=== PATIENT | female | born 1935 | race African-American/Black ===

== ENCOUNTER → 2018-01-21 | Day surgery (SDC) | payer MEDICARE, OTHER ==
[~2018-01-21] MED LIST: ALLOPURINOL 10100 M2 PO; ATORVASTATIN CA40 MG PO; CARDURA4 MG PO; HYDRALAZINE 2525 MG PO; MIRALAX17 GM PO; NEPHRO-VITE TA0.8 MG PO; NIFEDIPINE ER90 M1 PO; TYLENOL325 MG PO
[2018-01-21 11:01] LABS: HEMATOCRIT 34.7 % (37.0-47.0); HEMOGLOBIN 11.3 gm/dL (12.0-15.0); MCH 28.8 pg (26.0-34.0); MCHC 32.7 g/dL (28.0-37.0); MPV 8.2 fl. (7.2-11.1); RBC 3.94 mil/uL (4.20-5.00); RDW-CV 17.4 % (10.5-14.5); WBC 7.6 thou/uL (4.0-11.0)
[2018-01-21 11:09] LABS: CALCIUM 10.2 mg/dL (8.5-10.1); CREATININE 4.4 mg/dL (0.6-1.3); POTASSIUM 4.9 mmol/L (3.5-5.1)
--- NOTE | 2018-01-21 17:51 | EKG ---
[place] [address] ELECTROCARDIOGRAM REPORT Name: MAYDA CALVIN Room: [facility]#: [id number] Admission: 01/21/18 Attend Phys: Marck Lund DO Discharge: Date of : 37 Report #: [id number] THIS REPORT FOR: //name// [facility] Test Date: 2018-01-21 Test Time: 10:42:18 Pat Name: MAYDA CALVIN Department: Room: Gender: F [employer]: : 1935 Requested By: Marck Lund Order Number: [id number] Reading MD: Wilbert Dasilva Measurements Intervals [place] Rate: 88 P: 73 [place]: 143 QRS: 11 QRSD: 85 T: 60 QT: 360 QTc: 436 Interpretive Statements Sinus rhythm Probable left atrial enlargement No previous ECG available for comparison Electronically Signed On 01-21-2018 17:51:41 CDT by Wilbert Dasilva [email or web address] <ELECTRONICALLY SIGNED> By: Wilbert Dasilva MD, [facility] 01/21/18 1751 1042 1042 Wilbert Dasilva MD, FACC /EPI
--- NOTE | 2018-01-26 15:04 | OP ---
[address] [address] OPERATIVE REPORT Name: MAYDA CALVIN Room: [facility]#: [id number] Admission: 01/21/18 Attend Phys: Marck Lund DO Discharge: Date of : 37 Report #: [id number] THIS REPORT FOR: //name// CC: Marck Mejia [facility] DATE OF SERVICE: 01/21/2018 PREOPERATIVE DIAGNOSIS: End-stage renal disease. POSTOPERATIVE DIAGNOSIS: End-stage renal disease. OPERATION: Creation of left brachial-axillary arteriovenous graft. SURGEON: Marck Lund DO [employer] ROLLS: None. ANESTHESIA: LMA. ESTIMATED BLOOD LOSS: 50 mL. FLUIDS: 200 crystalloid. URINE OUTPUT: None. SPECIMENS: None. COMPLICATIONS: None. IMPLANTS: A 4 x 7 tapered Acuseal graft in the left upper arm. FINDINGS: Left brachial artery was 5-6 mm in diameter, soft and suitable for access. The axillary vein with good outflow. She had excellent thrill within the graft. Upon completion on the anastomosis, she had a palpable left radial artery pulse as well. CLINICAL HISTORY: The patient is an 82-year-old woman who is in need of dialysis access. Recommendation was made of the left upper extremity AV graft, that she is right hand dominant and has no vein options available as they are too small. DETAILS OF PROCEDURE: After informed consent was obtained, the patient was taken to the operating room and placed on the OR bed in supine position. She was administered LMA anesthesia by the anesthesia team. Left upper extremity was prepped and draped in usual sterile fashion. [place] [address] OPERATIVE REPORT Name: MAYDA CALVIN Room: [facility]#: [id number] Admission: 01/21/18 Attend Phys: Marck Lund DO Discharge: Date of : 37 Report #: [id number] identifying correct patient and procedure. Next, transverse incision was made on the medial aspect of the left upper arm, just in the antecubital fossa. Dissection was carried down through skin and subcutaneous tissues, both sharply and with electrocautery. The brachial artery was identified, was circumferentially mobilized proximally and distally and controlled with Silastic vessel loops in Ford fashion. I then turned my attention to the axillary area. I made a longitudinal incision on the medial arm. Again, dissection was carried down through skin and subcutaneous tissues, both sharply and with electrocautery. Axillary vein was identified, was circumferentially mobilized and controlled with Silastic vessel loops proximally and distally in Ford fashion. At this point, I administered 5000 units of intravenous heparin. This allowed to circulate for 3 minutes. I then tunneled the graft and subcutaneous plane in standard fashion on the anterior medial aspect of the arm. I then tailored the graft lengths and then once the heparin was circulated, I occluded the brachial artery, made an arteriotomy, extended with Ford scissors. I performed an end-to-side anastomosis with the graft and the brachial artery with running 6-0 Prolene suture. I then flushed the artery of the graft and then restored flow to the hand and then flushed the graft with heparinized saline and occluded the graft and the brachial incision. I then trimmed the graft to length, so it lies nicely with the anatomy of the vein. I then occluded the axillary vein, made a venotomy and extended with Ford scissors and then performed an end-to-side anastomosis with running 5-0 Prolene suture. Prior to completion of the suture line, the vein was allowed to fore and backbleed. I then flushed the graft and then flushed anastomosis with heparinized saline. I then completed the suture line, restored flow through the graft and into the axillary vein. There was a palpable thrill within the graft and palpable left radial artery. At this point, I then partially reversed the heparin with 40 mg of protamine. I irrigated the wounds with antibiotic solution and closed the wounds in layers with 3-0 Vicryl and 4-0 Monocryl on the skin and Dermabond was applied. All sponge, sharp and instrument counts reported as correct x 2. She tolerated the procedure well and was transferred to recovery in stable condition. <ELECTRONICALLY SIGNED> By: Marck Lund DO 01/26/18 1504 1247 1411Aadal Lund DO /nt
== END | disposition home or self-care (01) ==
LOC: M.SUR 10:19
PROVIDERS: Surgery
DX: N18.6 End stage renal disease (principal)

== ENCOUNTER → 2020-02-03 | Outpatient (CLI) | payer MEDICARE, OTHER ==
[2020-02-03 14:45] VITALS: BP 151/77
--- NOTE | 2020-02-07 09:20 | OP ---
[address] [address] OPERATIVE REPORT Name: CALVINMAYDA Lucy Room: [facility]#: [id number] Admission: 02/03/20 Attend Phys: Dennis Hanna MD Discharge: Date of : 36 Report #: [id number] THIS REPORT FOR: //name// cc: Jt Chanlder Bruce R. DO ~ THIS REPORT FOR: //name// CC: Jt Hanna DATE OF SERVICE: 02/03/2020 PREOPERATIVE DIAGNOSES: 1. End-stage renal disease. 2. Thrombosed AV graft, left arm. POSTOPERATIVE DIAGNOSES: 1. End-stage renal disease. 2. Thrombosed AV graft, left arm. PROCEDURE: 1. Fistulogram, left upper extremity access. 2. Thrombolysis left arm AV graft. 3. Thrombectomy, left arm AV graft. 4. Angioplasty and stenting using an endograft of the venous outflow chronic thrombus. 5. Central venogram. FINDINGS On imagin. AV graft is thrombosed. After thrombolysis the arterial limb of the graft is widely patent with continued thrombus within the venous outflow. 2. After clearance of majority of the thrombus, there are some chronic thrombus on the end of an old venous outflow stent. Despite multiple attempts at the maceration and thrombectomy, this clot remained present. 3. After stenting There was no residual stenosis or free floating clot within the venous outflow stent. 4. No central venous stenosis identified on venous outflow. 5. Arterial anastomosis widely patent. 6. After intervention, there is widely patent flow through the AV graft from arterial anastomosis to venous anastomosis. There was also widely patent flow through the venous outflow. SURGEON: Dennis Hanna MD CRUSHER MACHINE OPERATOR: [place] [address] OPERATIVE REPORT Name: MAYDA CALVIN Room: [facility]#: [id number] Admission: 02/03/20 Attend Phys: Dennis Hanna MD Discharge: Date of : 36 Report #: [id number] ANESTHESIA: Local sedation. COMPLICATIONS: None. ESTIMATED BLOOD LOSS: Minimal. INDICATIONS FOR PROCEDURE: The patient is a very pleasant 84-year-old -Monegas[place] female well known to us. My partner, Dr. Lund, placed a left arm AV graft on her some time ago. She has experienced some issues with clotting in the past requiring multiple fistulograms with intervention. She dialyzed on Thursday, but came in with a thrombosed graft today. We have taken for emergent thrombectomy, so she can get dialysis as we can. Informed consent was obtained from the patient with risks including but not limited to bleeding, infection, need for further surgery, pain, , heart attack, stroke, steal syndrome. The patient understood these risks and was agreeable to proceed. DESCRIPTION OF PROCEDURE: The patient was in the preoperative holding area. I prepped and draped the left upper extremity. I accessed the AV graft with a micropuncture kit. I then diffusely instilled 2 mg TPA throughout the graft as I withdrew the catheter. This was a thrombolysis. We allowed this to marinate for approximately 30 minutes prior to the procedure. The patient was then taken to the angio suite, placed in supine position. Left upper extremity was prepped and draped in usual sterile fashion. Timeout was performed. Sedation was initiated. I use 5 mL of 1% lidocaine throughout the procedure for local anesthetic. I accessed AV graft in antegrade fashion near the arterial anastomosis. I used Seldinger technique to exchange out for a 7-Belarusian sheath. I performed a careful fistulogram taking care not to pressurized arterial limb and causing embolization. Please see findings above. Using a wire, I across the outflow thrombus. I performed thrombectomy with outflow thrombus using an 8 and 10 mm balloon macerating and thrombectomizing the outflow. I had excellent result. There was some chronic residual thrombus on the distal end of the previously placed outflow stent. I made multiple attempts to free this thrombus and macerated that was unsuccessful. Central venogram showed no significant stenosis. To address the chronic thrombus on the old stent, I covered this with a second stent graft measuring 8 x 60. This extended from the distal venous end of the graft into the previously placed stent. Stent deployed in excellent position. I post-dilated 8 mm balloon. Completion imaging showed excellent result with resolution of the stenosis/chronic thrombus. I think this may have been the nidus for the thrombosis. I removed my sheath and wire, I placed a Monocryl stitch in the skin. There was no bleeding or hematoma. The patient tolerated the procedure well and was taken alert and awake to recovery room in good condition. The patient has been scheduled for elective follow up fistulogram next week, but thrombosed this week. Given that she thrombosed prior to her planned follow up [facility] [address] [place] [address] OPERATIVE REPORT Name: MAYDA CALVIN Room: [facility]#: [id number] Admission: 02/03/20 Attend Phys: Dennis Hanna MD Discharge: Date of : 37 Report #: [id number] fistulogram, I would recommend that we repeat one in 2 months rather than 3. I will get this scheduled. <ELECTRONICALLY SIGNED> By: Marck Lund DO 02/07/20 0920 1559 1656Dennis Hanna MD /nt
== END | disposition home or self-care (01) ==
LOC: M.INT 13:57
DX: N18.6 End stage renal disease (principal); T82.868A Thrombosis due to vascular prosthetic devices, implants and grafts, initial encounter; Z99.2 Dependence on renal dialysis; Y83.8 Other surgical procedures as the cause of abnormal reaction of the patient, or of later complication, without mention of misadventure at the time of the procedure

== ENCOUNTER 2020-08-07 00:47 | Inpatient (IN) | payer MEDICARE, OTHER ==
[~2020-08-07] VITALS: Ht 152.4 cm; Wt 64.4 kg
[2020-08-07] VITALS (8 sets, daily range): BP systolic 114–163; BP diastolic 53–79
[2020-08-07 02:01] LABS: ABSOLUTE LYMPHOCYTES 0.4 thou/uL (0.8-5.3); ABSOLUTE MONOCYTES 1.1 thou/uL (0.0-1.2); ABSOLUTE NEUTROPHILS 3.9 thou/uL (1.6-8.1); BASOPHILS 0.8 %; EOSINOPHILS 0.1 %; HEMATOCRIT 29.7 % (37.0-47.0); MCH 30.2 pg (26.0-34.0); MCHC 33.8 g/dL (28.0-37.0); MCV 89.4 fL (80.0-100.0); MONOCYTES 19.7 %; MPV 8.7 fl. (7.2-11.1); NUCLEATED RBCS 0 /100WBC; PLATELET COUNT* 145 thou/uL (150-400); POLYS 72.4 %; RBC 3.32 mil/uL (4.20-5.00); RDW-CV 20.5 % (10.5-14.5); WBC 5.4 thou/uL (4.0-11.0)
[2020-08-07 02:10] LABS: CALCIUM 8.4 mg/dL (8.5-10.1); CREATININE 4.7 mg/dL (0.6-1.3); POTASSIUM 4.2 mmol/L (3.5-5.1)
[2020-08-07 02:15] LABS: ALBUMIN 3.6 g/dL (3.4-5.0); TOTAL BILIRUBIN 0.4 mg/dL (<0.1-1.0); TOTAL PROTEIN 7.4 g/dL (6.4-8.2)
[2020-08-07 05:07] LABS: ANISOCYTOSIS 2+
[2020-08-07 05:09] LABS: OVALOCYTES 1+; PLATELET ESTIMATE ADEQUATE; SCHISTOCYTES Occasional
[2020-08-07 09:38] LABS: CHOLESTEROL 214 mg/dL (<200); HDL CHOLESTEROL 80 mg/dL (>40); LDL CHOLESTEROL 116 mg/dL (<100); TC:HDL 2.7 Ratio (Not establshd); TRIGLYCERIDE 94 mg/dL (<150); VLDL 19 mg/dL (<40)
--- NOTE | 2020-08-07 09:38 | EKG ---
[place] [address] ELECTROCARDIOGRAM REPORT Name: MAYDA CALVIN Room: [place] [address] ADM IN [facility]#: [id number] Admission: 08/07/20 Attend Phys: Theron Anne Discharge: Date of : 37 Date of Service: 08/07/20 0055 Report #: [id number] THIS REPORT FOR: //name// [facility] ED Test Date: 2020-08-07 Test Time: 00:55:39 Pat Name: MAYDA CALVIN Department: Room: [facility] Gender: F [facility] [place] : 1935 Requested By: Joe Corrales Order Number: [id number] MD: Shamar Pastor Measurements Intervals [place] Rate: 90 P: 55 MD: 153 QRS: -5 QRSD: 96 T: 29 QT: 337 QTc: 413 Interpretive Statements Sinus rhythm Atrial premature complex Probable left atrial enlargement Compared to ECG 01/21/2018 10:42:18 Atrial premature complex(es) now present Electronically Signed On 08-07-2020 9:38:29 FLORAL DECORATOR by Shamar Pastor [email or web address] <ELECTRONICALLY SIGNED> By: Shamar Pastor MD, FACC 08/07/20 0938 0055 0055 Shamar Pastor MD, FAC /EPI
[2020-08-07 09:39] LABS: SERUM ASSESSMENT Clear
[2020-08-07 09:41] LABS: CALCIUM 8.2 mg/dL (8.5-10.1); CREATININE 5.3 mg/dL (0.6-1.3); MAGNESIUM 2.1 mg/dL (1.8-2.4); PHOSPHORUS* 3.9 mg/dL (2.5-4.9); POTASSIUM 4.1 mmol/L (3.5-5.1)
[2020-08-08 00:36] VITALS: BP 156/73
[2020-08-08 02:06] LABS: GLYCOHEMOGLOBIN (HGB A1C) 4.7 % (4.8-5.6)
[2020-08-08 04:00] VITALS: BP 156/79
[2020-08-08 08:00] VITALS: BP 150/70
[2020-08-08] MEDS ORDERED: CLOPIDOGREL75 MG PO (09:29)
[2020-08-08] MEDS ORDERED: ADULT LOW DOSE81 MG PO (09:29)
--- NOTE | 2020-08-08 10:47 | CON ---
[address] [address] CONSULTATION Name: MAYDA CALVIN Room: [address] IN .R.#: [id number] Admission: 08/07/20 Attend Phys: Khushboo Campos Discharge: Date of : 37 Report #: [id number] THIS REPORT FOR: //name// cc: YONY - No family physician/PCP YONY - No family physician/PCP ~ DATE OF SERVICE: 08/07/2020 REQUESTING PHYSICIAN: Dr. Cortes. REASON FOR CONSULTATION: End-stage renal disease. HISTORY OF PRESENT ILLNESS: The patient is a very pleasant 84-year-old female with medical history significant for end-stage renal disease, on dialysis on Thursday, Thursday, Thursday schedule at [facility]. The patient presents with complaints of weakness, confusion, was found to have acute stroke, also was found to have a positive test for COVID-19 and was admitted to the hospital. PAST MEDICAL HISTORY: 1. End-stage renal disease. 2. Anemia. 3. Hypertension. SOCIAL HISTORY: No tobacco or alcohol abuse. FAMILY HISTORY: Noncontributory. REVIEW OF SYSTEMS: She is confused. PHYSICAL EXAMINATION: Not performed due to her being positive for COVID-19. I have reviewed physical exam that was described by Dr. Cortes. No immediate need for dialysis. Her potassium is 4.1. ASSESSMENT: 1. End-stage renal disease, dialysis on Thursday, Thursday, and Thursday schedule. 2. COVID-19 positive test. 3. Acute stroke. 4. Anemia. PLAN: [place] [address] CONSULTATION Name: MAYDA CALVIN Room: [address] M.R.#: [id number] Admission: 08/07/20 Attend Phys: Khushboo Campos Discharge: Date of : 36 Report #: [id number] Thank you very much. <ELECTRONICALLY SIGNED> By: Efrain Ibrahim MD 08/08/20 1047 1131 [id number] Ibrahim MD /PMT
[2020-08-08 12:00] VITALS: BP 149/80
[2020-08-08 16:24] VITALS: BP 149/80
[2020-08-08 16:45] VITALS: BP 149/80
--- NOTE | 2020-08-12 12:47 | CON ---
[address] [address] CONSULTATION Name: NIKUNJMAYDA M Room: [address] IN .R.#: [id number] Admission: 08/07/20 Attend Phys: Khushboo Campos Discharge: 08/08/20 Date of : 37 Report #: [id number] THIS REPORT FOR: //name// cc: FAM - No family physician/PCP FAM - No family physician/PCP ~ DATE OF SERVICE: 08/07/2020 HISTORY OF PRESENT ILLNESS: This is an 84-year-old female patient who is a pretty reluctant historian. She said she is here because her daughter wanted her to be here. Daughter is gone and I could not contact her. I talked to Emergency Room physician, Dr. Corrales and we will complete the consult later on. Daughter has mentioned that this patient was not able to move as much as she was doing before. It is mainly in the ambulation. It looks like it is going on since 6:00 p.m. yesterday. She is pretty irritable and does not even want to be here. REVIEW OF SYSTEMS: Indicate that she is on dialysis. She received dialysis earlier today. She acknowledges that, but she does not give any more history. We will try to reach the daughter. A 14-point review of system was attempted in this patient, but she did not cooperate. PAST MEDICAL HISTORY: Positive for renal failure and the patient is on dialysis. SOCIAL HISTORY: She says she does not drink alcohol. PHYSICAL EXAMINATION: She is alert. She is responsive. Her speech looks okay. She is not very happy being here and not very cooperative with examination, but she knows what month it is. I tried to do the cranial nerve examination, the best I can tell, I do not see any facial palsy. She moves all 4 extremities. It looks like she moves the right lower extremity less than the left one, but it is difficult to tell about the effort, she says she can feel on both sides. She finally did the cerebellar sign like [id number], but that does not appear to be showing any abnormality. That is all the cooperation she did. She does not appear to be in respiratory difficulty. IMPRESSION AND PLAN: It is possible that the patient had a stroke, it is difficult to tell if she did, it is more than 12-hour, and NIH is pretty low. I discussed with Dr. Corrales and asked him to do an MRI and MRA of the head and neck in this patient. They usually come here at 7:00 and I told them to do that one as the first task before they start the regular routine and we will try to continue to make an effort to reach the family to get some more history. We will get her evaluate by PT, OT later on today depending [place] [address] CONSULTATION Name: MAYDA CALVIN Room: [address] [place] ..#: [id number] Admission: 08/07/20 Attend Phys: Khushboo Campos Discharge: 08/08/20 Date of : 37 Report #: [id number] think MRI will be better test than the CT scan in this patient. We will complete the consult later on today. <ELECTRONICALLY SIGNED> By: Reinaldo Dubois MD 08/12/20 1247 0535 0626Reinaldo Dubois MD /nt
== END 2020-08-08 18:00 | disposition home health service (06) | DRG 177 ==
LOC: M.ERS 00:47 → M.TBA-ER 03:28 → M.2W 14:45
PROVIDERS: Emergency Medicine Emergency Medical Services; Internal Medicine; ADMIT Internal Medicine; ATTEND Internal Medicine
PROC: 5A1D70Z Performance of Urinary Filtration, Intermittent, Less than 6 Hours Per Day (ICD-10-PCS; principal; 2020-08-08)
DX: U07.1 COVID-19 (principal); G92 Toxic encephalopathy; N18.6 End stage renal disease; I12.0 Hypertensive chronic kidney disease with stage 5 chronic kidney disease or end stage renal disease; F01.50 Vascular dementia, unspecified severity, without behavioral disturbance, psychotic disturbance, mood disturbance, and anxiety; D63.1 Anemia in chronic kidney disease; E78.5 Hyperlipidemia, unspecified; Z99.2 Dependence on renal dialysis; Z79.899 Other long term (current) drug therapy; Z86.73 Personal history of transient ischemic attack (TIA), and cerebral infarction without residual deficits; B34.9 Viral infection, unspecified